=== PATIENT | male | born 2005 | race Caucasian/White ===

== ENCOUNTER 2024-04-14 17:50 | Emergency (ER) | payer OTHER, SELFPAY ==
--- NOTE | ~2024-04-14 | XR_ITS ---
CLINICAL HISTORY: CP 2 view chest x-ray Comparison: None Findings: The lungs are clear. Heart size is normal. No acute fracture. IMPRESSION: 1. No acute findings. This document has been electronically signed by: Maurice Pavon MD on 04/14/2024 19:34:56
[2024-04-14 17:59] VITALS: BP 103/50; BP 140/58; PULSE 75; PULSE 86; RESP 16; TEMP 36.8; O2SAT 100; O2SAT 98; BMI 21.3
--- NOTE | 2024-04-14 17:59 | ECG_ITS ---
Test Reason : CP Blood Pressure : */* mmHG Vent. Rate : 74 BPM Atrial Rate : 74 BPM P-R Int : 156 ms QRS Dur : 96 ms QT Int : 362 ms P-R-T Axes : -11 137 64 degrees QTcB Int : 401 ms Normal sinus rhythm Right axis deviation Abnormal ECG No previous ECGs available Referred By: Generic ED Physician Electronically Signed By: BYRAN GUSMAN MD
--- NOTE | 2024-04-14 18:09 | ED.CHESTPAIN ---
HPI - Chest Pain General Chief Complaint: Chest Pain Stated Complaint: Chest pain Time Seen by Provider: 04/14/24 18:56 History of Present Illness ED Provider: Freddy Harman MD HPI narrative: 18-year-old male denies any medical history is daily cannabis smoker denies any cardiopulmonary history. He is coming in with about 2-3 days of discomfort in the chest left parasternal region some mild shortness of breath and 1 2 to near syncopal episodes over the past 2-3 days sometimes while walking. He reports about 3-4 days ago before all of this he developed a mild sore throat dry cough low-grade subjective fever felt he was catching a cold or upper respiratory infection. He has no history DVT or PE nor any personal or family cardiac history or early cardiac . Denies leg swelling chest trauma although he does work a physical job in a warehouse he does not recall any explicit injury. No hemoptysis. Related Data Previous Rx's ?Medication ?Instructions ?Recorded aspirin 650 mg tablet,delayed 650 mg PO Q8-10H 2 weeks #42 tabs 04/14/24 release colchicine 0.6 mg capsule 0.6 mg PO BID 180 days #360 caps 04/14/24 pantoprazole 20 mg tablet,delayed 20 mg PO DAILY #30 tabs 04/14/24 release Allergies Allergy/AdvReac Type Severity Reaction Status Date / Time No Known Allergies Allergy Verified 04/14/24 18:08 [facility] Social History Social History Smoked in Last 30 Days: No Use of substances other than those prescribed or required for medical reasons: Yes Substance Use Type: Marijuana Substance Use Frequency: Daily Advance Directives: No Advance Directives Information Provided: No Do you have a plan to hurt others: No Plan Physical Exam Vital Signs: Vital Signs: Last Vital Signs Temp 99.2 F 04/14/24 20:31 Pulse 73 04/14/24 20:31 Resp 16 04/14/24 20:31 BP 115/57 L 04/14/24 20:31 Pulse Ox 98 04/14/24 20:31 O2 Del Method Room Air 04/14/24 20:31 BMI result Body Mass Index 21.3 Const: Other: EXAM: Gen: Alert, awake, well appearing, well hydrated. Head: Atraumatic Eyes: Anicteric, Normal conjunctiva. ENT: Moist mucosa, no pallor. ? Neck: Supple. No JVD no masses Respiratory: Breathing comfortably, No distress.Clear to auscultation bilaterally, symmetric chest expansion, No wheeze, rales, ronchi. Cardiovascular: Regular rate and rhythm. No murmurs or rub. Well perfused periphery, warm extremities. No edema. ? Chest wall: Mild tenderness left parasternal border. No bruising no ecchymosis no step-off no crepitus Abdominal: Soft, no objective distension. No palpable masses or obvious organomegaly. No focal tenderness, no guarding, no rebound tenderness or other peritoneal findings. : No flank tenderness. Neuro: Alert. Gross movement of all extremities intact. ? Vital signs: See flowsheet Course Course Course Narrative: This is an RME: Additional HPI, ROS, PE not included below will be deferred to primary provider. RME assessment and note performed by: Katharina Westfall PA-C This is a [id number]-male who presents to the ER with complaints of intermittent chest pain x 3 days on and off. Patient states that he feels as though his heart is racing, developed diaphoresis. Denies any known stressors. Plan: EKG, chest x-ray, labs, further ER evaluation needed. Medications Administered Discontinued Medications Generic Name Dose Route Start Last Admin Trade Name Freq PRN Reason Stop Dose Admin Aspirin 650 mg 04/14/24 20:20 04/14/24 20:39 Aspirin 325 Mg Tablet PO 04/14/24 20:21 650 mg ONCE ONE Administration Colchicine 1.2 mg 04/14/24 20:20 04/14/24 20:38 Colchicine 0.6 Mg Tablet PO 04/14/24 20:21 1.2 mg ONCE ONE Administration Omeprazole 20 mg 04/14/24 20:20 04/14/24 20:39 Omeprazole 20 Mg Capsule. PO 04/14/24 20:21 20 mg ONCE ONE Administration Procedures Procedure Narrative Procedure Narrative: EMERGENCY ULTRASOUND INTERPRETATION-Limited Echocardiography [This study was ordered, performed, and interpreted by myself. The study reveals: Impression: NORMAL LV FUNCTION, NO RV DYSFUNCTION, NO PERICARDIAL EFFUSION] [Emergent Cardiac for Indication: Views Used: PLAX, PSSA, A4, SX, IVC Pericardial Effusion/Tamponade Findings: NONE RV Dilation (> LV diam in 4ch apical): NONE Global LV Fxn: NORMAL IVC Dilation and Resp Variation: NORMAL Performed by: MD Ghazal Images were stored on EMR through [employer] image archive software. CPT:73627] Medical Decision Making Medical Decision Making [facility] Narrative: 18-year-old male with mild pleuritic left parasternal pain for 3 days in the setting of mild URI. No chest wall trauma. X-ray interpreted by myself initially with no pneumothorax no rib fracture no pulmonary contusion. The ECG does have mild diffuse ST elevation this could be benign early repolarization and/or solar sales representative of pericarditis Labs reviewed with no troponin elevation or electrolyte derangement or other actionable chemistry or CBC finding. Lab Data [facility] Lab Attestation statement: I reviewed the patient's lab results. 04/14/24 19:13 04/14/24 19:14 Labs: Lab Results 04/14/24 04/14/24 Range/Units 19:13 19:14 WBC 10.3 (4.8-10.8) X10*3/uL RBC 5.49 (4.60-5.80) X10*6/uL Hgb 16.5 (14.0-18.0) g/dl Hct 46.5 (42.0-52.0) % MCV 84.7 (80.0-98.0) fL MCH 30.1 (27.0-33.0) pg MCHC 35.5 (31.0-36.0) g/dl RDW 12.9 (11.0-16.0) % Plt Count 202 (160-400) X10*3/uL MPV 11.9 (9.4-12.4) fL Immature Gran % (Auto) 0.2 (0.0-0.4) % Neut % (Auto) 66.7 (45-73) % Lymph % (Auto) 25.3 (20-40) % [place] % (Auto) 7.0 (2-11) % Eos % (Auto) 0.1 (0-4) % Baso % (Auto) 0.7 (0-2) % Lymph # (Auto) 2.6 (1.2-4.9) X10*3/uL [place] # (Auto) 0.7 (0.1-1.2) X10*3/uL Eos # (Auto) 0.0 (0.0-0.4) X10*3/uL Baso # (Auto) 0.1 (0.0-0.2) X10*3/uL Abs Immat Gran (auto) 0.02 (0.00-0.03) X10*3/uL Absolute Neuts (auto) 6.9 (2.0-8.3) x10*3/uL Absolute Nucleated RBC 0.000 (0.0-0.012) X10*3/uL Nucleated RBC % (auto) 0.0 (0.0-0.2) /100WBC Sodium 141 (135-145) mmol/L Potassium 3.9 (3.3-5.1) mmol/L Chloride 107 (96-108) mmol/L Carbon Dioxide 26 (22-29) mmol/L Anion Gap 12 (12-20) BUN 15 (9-16) mg/dL Creatinine 1.05 (0.5-1.4) mg/dL Estim Creat Clear Calc 100.7 Estimated GFR > 60 Random Glucose 90 (60-115) mg/dL Calcium 9.6 (8.4-10.2) mg/dL Magnesium 2.2 (1.6-2.6) mg/dL Total Bilirubin 0.8 (0.0-1.0) mg/dL Direct Bilirubin 0.3 (0.0-0.5) mg/dL AST 28 (5-37) U/L ALT 22 (0-40) U/L Alkaline Phosphatase 67 (39-117) U/L Troponin I High Sens < 2.7 (<3.5-35.0) ng/L Total Protein 8.3 H (6.5-8.0) g/dL Albumin 4.9 (3.5-5.0) g/dL Lipase 12 (8-78) U/L TSH 1.34 (0.32-4.0) uIU/mL Influenza Type A (PCR) NEGATIVE (Negative) Influenza Type B (PCR) NEGATIVE (Negative) RSV RNA Qual (PCR) NEGATIVE (Negative) SARS-CoV-2 RNA (RT-PCR) NEGATIVE (Negative) Independent Interpretation I performed an independent interpretation of an: EKG Interpretation: Sinus rhythm rate 74 QTC 401. Diffuse concave upward ST elevation particularly V2 through V5. There is also mild ST elevations in lead 2 [address] AVF. No reciprocal ST depressions. Discharge Plan Discharge Clinical Impression: Chest pain, Pericarditis Patient Disposition: Home, Self-Care Additional Instructions: DISCHARGE DIAGNOSES: We believe you have pericarditis and inflammation of the tissue around your heart. This can cause chest pain shortness of breath and some of your other symptoms. HISTORY OF PRESENTATION: ?Mild dry cough, chest pain EMERGENCY DEPARTMENT COURSE,TESTS, TREATMENTS: While in the ED today in the emergency department he had a chest x-ray this did not show any collapsed lung, pneumonia or other acute abnormalities You had lab work including blood counts chemistry tests and a cardiac enzyme ?heart attack? test. These were all normal and reassuring. Your EKGs showed signs of inflammatory condition around the heart called pericarditis most likely. DISCHARGE MEDICATIONS: ?We have prescribed several medications take them as we prescribed him to not miss any doses . Take these medications with meals even if it is piece of bread or small amount of food if you do not you are at risk of hurting your stomach FOLLOW-UP: ?Call your primary or general physician soon as possible to discuss your symptoms, your ED visit and to discuss follow up plans Call your primary doctor for follow up you should be seen within 1 week for re-evaluation INSTRUCTIONS ?& RETURN PRECAUTIONS: If any symptoms change first call your primary physician, if it is after-hours your primary doctors office should have a provider responder you can speak with. If the symptoms are severe or very concerning to you then call 911 or return to the ED. If you develop severe pain severe difficulty breathing if you lose consciousness more than once if you develop severe rapid heart beating or palpitation sensation call 9 want to come to the ED Freddy Harman MD Emergency Physician [facility] Prescriptions: New colchicine 0.6 mg capsule 0.6 mg PO BID 180 Days Qty: 360 0RF aspirin 650 mg tablet,delayed release (DR/EC) 650 mg PO Q8-10H 14 Days Qty: 42 0RF pantoprazole 20 mg tablet,delayed release (DR/EC) 20 mg PO DAILY Qty: 30 0RF Discharge Date/Time: 04/14/24 20:53 Print Language: Khmer
[2024-04-14 19:21] LABS: MANUAL DIFF FLAG NO
[2024-04-14 19:31] LABS: Basophils Absolute Auto 0.1 X10*3/uL (0.0-0.2); Basophils Percent Auto 0.7 % (0-2); Eosinophils Percent Auto 0.1 % (0-4); Hematocrit 46.5 % (42.0-52.0); Hemoglobin 16.5 g/dl (14.0-18.0); Imm Gran Abs Auto 0.02 X10*3/uL (0.00-0.03); Imm Gran Pct Auto 0.2 % (0.0-0.4); Lymphocytes Absolute Auto 2.6 X10*3/uL (1.2-4.9); Lymphocytes Percent Auto 25.3 % (20-40); Mean Corpuscular HGB Conc 35.5 g/dl (31.0-36.0); Mean Corpuscular Hemoglobin 30.1 pg (27.0-33.0); Mean Corpuscular Volume 84.7 fL (80.0-98.0); Mean Platelet Volume 11.9 fL (9.4-12.4); Monocytes Absolute Auto 0.7 X10*3/uL (0.1-1.2); Neutrophils Absolute Auto 6.9 x10*3/uL (2.0-8.3); Neutrophils Percent Auto 66.7 % (45-73); Platelet Count 202 X10*3/uL (160-400); Red Blood Count 5.49 X10*6/uL (4.60-5.80); Red Cell Distribution Width 12.9 % (11.0-16.0); White Blood Count 10.3 X10*3/uL (4.8-10.8)
[2024-04-14 19:45] LABS: Alanine Aminotransferase 22 U/L (0-40); Albumin Level 4.9 g/dL (3.5-5.0); Alkaline Phosphatase 67 U/L (39-117); Anion Gap 12 (12-20); Aspartate Amino Transferase 28 U/L (5-37); Bilirubin Direct 0.3 mg/dL (0.0-0.5); Bilirubin Total 0.8 mg/dL (0.0-1.0); Blood Urea Nitrogen 15 mg/dL (9-16); Calcium 9.6 mg/dL (8.4-10.2); Carbon Dioxide 26 mmol/L (22-29); Chloride 107 mmol/L (96-108); Creatinine Clr Calc Pharmacy 100.7; Estimated Glomerular Filt Rate > 60; Glucose Random 90 mg/dL (60-115); Lipase 12 U/L (8-78); Magnesium 2.2 mg/dL (1.6-2.6); Potassium 3.9 mmol/L (3.3-5.1); Sodium 141 mmol/L (135-145); Total Protein 8.3 g/dL (6.5-8.0)
[2024-04-14 19:55] LABS: Troponin-I High Sensitivity < 2.7 ng/L (<3.5-35.0)
[2024-04-14 20:05] LABS: Influenza A PCR NEGATIVE (Negative); Influenza B PCR NEGATIVE (Negative); Resp Syncy Virus RNA Qual PCR NEGATIVE (Negative); SARS COV2 PCR INHOUSE NEGATIVE (Negative)
[2024-04-14 20:08] LABS: TSH reflex Free T4 1.34 uIU/mL (0.32-4.0)
[2024-04-14 20:31] VITALS: BP 115/57; PULSE 73; RESP 16; TEMP 37.3; O2SAT 98
[2024-04-14] MEDS: Colchicine 0.6 MG TABLET 1.2 MG PO (20:38)
[2024-04-14] MEDS: Omeprazole 20 MG CAPSULE.DR PO (20:39)
[2024-04-14] MEDS: Aspirin 325 MG TABLET 650 MG PO (20:39)
== END 2024-04-14 20:53 | disposition home or self-care (01) ==
PROVIDERS: Physician Assistant Medical; Emergency Provider Emergency Medicine
DX: R07.89 Other chest pain (principal); I31.9 Disease of pericardium, unspecified; R07.81 Pleurodynia; R06.02 Shortness of breath; J02.9 Acute pharyngitis, unspecified; F12.10 Cannabis abuse, uncomplicated; R05.9 Cough, unspecified; R50.9 Fever, unspecified; R94.31 Abnormal electrocardiogram [ECG] [EKG]; Z03.818 Encounter for observation for suspected exposure to other biological agents ruled out; Z79.899 Other long term (current) drug therapy
CPT/HCPCS: 0241U; 36415; 71046; 80048; 80076; 83690; 83735; 84443; 84484; 85025; 93005; 99283; 99285

== ENCOUNTER → 2024-04-14 17:59 | Outpatient (BNV) | payer OTHER, SELFPAY | PROVIDERS: Emergency Provider Emergency Medicine; Visit Provider Internal Medicine Cardiovascular Disease | DX: R07.9 Chest pain, unspecified (principal); R94.31 Abnormal electrocardiogram [ECG] [EKG] | CPT/HCPCS: 93010 ==

== ENCOUNTER → 2024-04-14 18:12 | Outpatient (BNV) | payer SELFPAY | PROVIDERS: Emergency Provider Emergency Medicine; Visit Provider Radiology Diagnostic Radiology | DX: R07.9 Chest pain, unspecified (principal) | CPT/HCPCS: 71046 ==

== ENCOUNTER 2024-04-22 22:28 | Emergency (ER) | payer OTHER, SELFPAY ==
--- NOTE | 2024-04-22 | ECG_ITS ---
Test Reason : sob Blood Pressure : */* mmHG Vent. Rate : 87 BPM Atrial Rate : 87 BPM P-R Int : 188 ms QRS Dur : 102 ms QT Int : 362 ms P-R-T Axes : 67 173 49 degrees QTcB Int : 435 ms Normal sinus rhythm Right axis deviation Right ventricular hypertrophy Abnormal ECG When compared with ECG of 14-Apr-2024 18:01, No significant change was found Referred By: Generic ED Physician Electronically Signed By: BRYAN GUSMAN MD
--- NOTE | ~2024-04-22 | XR_ITS ---
CLINICAL HISTORY: sob 1 view chest x-ray Comparison: CR - XR CHEST 2V - 04/14/24 19:10 EST Findings: The lungs are clear. Heart size is normal. No acute fracture. IMPRESSION: 1. No acute findings. This document has been electronically signed by: Carlton Calhoun MD on 04/22/2024 23:38:28
[2024-04-22 22:36] VITALS: BP 118/61; PULSE 92; RESP 16; TEMP 36.8; O2SAT 97; BMI 21.3
[2024-04-22 22:54] LABS: MANUAL DIFF FLAG NO
[2024-04-22 22:55] LABS: Basophils Absolute Auto 0.1 X10*3/uL (0.0-0.2); Basophils Percent Auto 0.8 % (0-2); Eosinophils Percent Auto 0.1 % (0-4); Hematocrit 41.3 % (42.0-52.0); Imm Gran Abs Auto 0.02 X10*3/uL (0.00-0.03); Imm Gran Pct Auto 0.3 % (0.0-0.4); Lymphocytes Absolute Auto 2.6 X10*3/uL (1.2-4.9); Lymphocytes Percent Auto 35.4 % (20-40); Mean Corpuscular HGB Conc 36.3 g/dl (31.0-36.0); Mean Corpuscular Hemoglobin 29.9 pg (27.0-33.0); Mean Corpuscular Volume 82.4 fL (80.0-98.0); Mean Platelet Volume 11.7 fL (9.4-12.4); Monocytes Absolute Auto 0.5 X10*3/uL (0.1-1.2); Monocytes Percent Auto 7.2 % (2-11); Neutrophils Absolute Auto 4.2 x10*3/uL (2.0-8.3); Neutrophils Percent Auto 56.2 % (45-73); Platelet Count 158 X10*3/uL (160-400); Red Blood Count 5.01 X10*6/uL (4.60-5.80); Red Cell Distribution Width 13.1 % (11.0-16.0); White Blood Count 7.5 X10*3/uL (4.8-10.8)
[2024-04-22 23:10] LABS: Alanine Aminotransferase 17 U/L (0-40); Albumin Level 4.6 g/dL (3.5-5.0); Alkaline Phosphatase 83 U/L (39-117); Anion Gap 16 (12-20); Aspartate Amino Transferase 26 U/L (5-37); Bilirubin Total 0.3 mg/dL (0.0-1.0); Blood Urea Nitrogen 16 mg/dL (9-16); Calcium 9.4 mg/dL (8.4-10.2); Carbon Dioxide 24 mmol/L (22-29); Chloride 108 mmol/L (96-108); Creatinine Clr Calc Pharmacy 111.4; Estimated Glomerular Filt Rate > 60; Glucose Random 105 mg/dL (60-115); Potassium 3.6 mmol/L (3.3-5.1); Sodium 144 mmol/L (135-145); Total Protein 7.6 g/dL (6.5-8.0)
[2024-04-22 23:19] LABS: Troponin-I High Sensitivity < 2.7 ng/L (<3.5-35.0)
[2024-04-23 02:16] VITALS: BP 127/58; PULSE 68; RESP 18; TEMP 36.6; O2SAT 99
--- NOTE | 2024-04-23 02:19 | PC.NURSE ---
Pt ambulatory to ED 21 with steady gait, assumed care of pt at this time. A&Ox3 skin pwd respirations even unlabored. VSS, equipment monitor phototypesetting applied NSR on monitor. Pt reports dx with pericarditis last , continues with intermittent sharp mid sternal chest pain worse with movement. Reports syncopal event at work today, witnessed by coworkers, no fall. Labs drawn in results received, awaiting primary provider eval, aware of plan of care.
--- NOTE | 2024-04-23 04:51 | PC.NURSE ---
Pt continues to await primary provider eval, no change in physical assessment.
[2024-04-23 05:28] VITALS: BP 98/54; PULSE 71; RESP 12; TEMP 36.4; O2SAT 98
--- NOTE | 2024-04-23 06:12 | ED.CHESTPAIN ---
HPI - Chest Pain General Chief Complaint: General Medical Stated Complaint: pericarditis? SOB Time Seen by Provider: 04/23/24 06:04 Source: patient and old records reviewed Mode of arrival: ambulatory Limitations: no limitations History of Present Illness ED Provider: YTREE MAYFIELD narrative: 18 yo male with no sig PMH had a viral illness last week and then pleuritic chest pain was dx with pericarditis and started on colchicine. He is getting better but he still has pleuritic chest pain then he went to work and afterwards he was so tired he felt like he would pass out. He notes the pain comes and goes. He isn't back to 100% and is frustated. He has no fevers, no black or bloody stools. MD complaint: chest pain Pertinent past history: other Onset (ago): day(s) (since thursday) Timing of current episode: episodic Prior episodes: Yes Onset: during rest and during exertion Pain location: substernal Pain radiation: none Severity: mild Quality: sharp Relieving factors: nothing Exacerbating factors: inspiration and movement Context: recent illness Associated symptoms: dyspnea Treatment prior to arrival: other (colchicine) Related Data Previous Rx's ?Medication ?Instructions ?Recorded aspirin 650 mg tablet,delayed 650 mg PO Q8-10H 2 weeks #42 tabs 04/14/24 release colchicine 0.6 mg capsule 0.6 mg PO BID 180 days #360 caps 04/14/24 pantoprazole 20 mg tablet,delayed 20 mg PO DAILY #30 tabs 04/14/24 release cyclobenzaprine 10 mg tablet 10 mg PO TID PRN muscle spasm #20 04/23/24 tabs Allergies Allergy/AdvReac Type Severity Reaction Status Date / Time No Known Allergies Allergy Verified 04/22/24 22:39 Review of Systems Review of Systems: Constitutional : No Weight loss, No Fever, No Chills ENT/Mouth : No sore throat, No Rhinorrhea Eyes: No Eye Pain, No Swelling Cardiovascular : pos Chest Pain, pos SOB, no Dyspnea on Exertion, No Orthopnea, No Edema, No Palpitations Respiratory : No Cough, No Sputum Gastrointestinal : no Nausea, No Vomiting, No Diarrhea, No abdominal Pain, No Hematochezia, No Melena Genitourinary : No Dysuria, No Urinary Frequency Musculoskeletal : No joint pain, No Myalgias, No Joint Swelling Skin : No Skin Lesions, No rash Neuro : No Weakness, No Numbness, No Dizziness, No Headache All other systems reviewed and are negative [facility] Past Medical History Attestation statement: The following information was validated with the patient. Source: old records reviewed Medical History (Updated 04/23/24 @ 07:29 by Linda Adams DO) Pericarditis Social History Social History (Updated 04/23/24 @ 07:29 by Linda Adams DO) Patient Tobacco Use Status: Never used Tobacco Substance Use Type: Marijuana Physical Exam Vital Signs: Vital Signs: Last Vital Signs Temp 97.4 F 04/23/24 06:40 Pulse 68 04/23/24 06:40 Resp 12 04/23/24 06:40 BP 109/63 04/23/24 06:40 Pulse Ox 99 04/23/24 06:40 O2 Del Method Room Air 04/23/24 06:40 BMI result Body Mass Index 21.3 Appearance: Alert. Oriented X3. No acute distress. Eyes: Pupils equal, round and reactive to light. ENT: Pharynx normal. Neck: Normal inspection. Neck supple. CVS: Normal heart rate and rhythm. Pulses normal. Respiratory: No respiratory distress. Breath sounds normal. Abdomen: Soft and nontender. Skin: Skin warm and dry. Normal skin color. Normal skin turgor. Extremities: No lower extremity edema. No calf ttp Neuro: Oriented X 3. No motor deficit. No sensory deficit. CN2-12 intact Procedures Procedure Narrative Procedure Narrative: bedside limited ECHO no effusion noted apical, parasternal, subxiphoid views Medical Decision Making Medical Decision Making [facility] Narrative: 18 yo male dx with pericarditis on thursday after viral illness he is on colchicine but he reports he is still tired and has intermittent chest pains. At this time he is well appearing and not toxic, will obtain bedside US for effusion, troponin for myopericarditis, ddimer for VTE though low probability. He is getting better he reports but would like recovery to be faster. If work up negative will add on additional muscle relaxer. Differential Diagnosis Differential Diagnoses: The differential diagnosis associated with the presentation includes perciarditis, effusion, low prob VTE Admission/Observation Consideration of admission/observation: Escalation of care including admission/observation considered work up negative no effusion stable for DC Lab Data [facility] Lab Attestation statement: I reviewed the patient's lab results. 04/22/24 22:49 04/22/24 22:49 Labs: Lab Results 04/22/24 04/23/24 Range/Units 22:49 06:44 WBC 7.5 (4.8-10.8) X10*3/uL RBC 5.01 (4.60-5.80) X10*6/uL Hgb 15.0 (14.0-18.0) g/dl Hct 41.3 L (42.0-52.0) % MCV 82.4 (80.0-98.0) fL MCH 29.9 (27.0-33.0) pg MCHC 36.3 H (31.0-36.0) g/dl RDW 13.1 (11.0-16.0) % Plt Count 158 L (160-400) X10*3/uL MPV 11.7 (9.4-12.4) fL Immature Gran % (Auto) 0.3 (0.0-0.4) % Neut % (Auto) 56.2 (45-73) % Lymph % (Auto) 35.4 (20-40) % [place] % (Auto) 7.2 (2-11) % Eos % (Auto) 0.1 (0-4) % Baso % (Auto) 0.8 (0-2) % Lymph # (Auto) 2.6 (1.2-4.9) X10*3/uL [place] # (Auto) 0.5 (0.1-1.2) X10*3/uL Eos # (Auto) 0.0 (0.0-0.4) X10*3/uL Baso # (Auto) 0.1 (0.0-0.2) X10*3/uL Abs Immat Gran (auto) 0.02 (0.00-0.03) X10*3/uL Absolute Neuts (auto) 4.2 (2.0-8.3) x10*3/uL Absolute Nucleated RBC 0.000 (0.0-0.012) X10*3/uL Nucleated RBC % (auto) 0.0 (0.0-0.2) /100WBC D-Dimer High Sensitivty < 150 NG/ML Sodium 144 (135-145) mmol/L Potassium 3.6 (3.3-5.1) mmol/L Chloride 108 (96-108) mmol/L Carbon Dioxide 24 (22-29) mmol/L Anion Gap 16 (12-20) BUN 16 (9-16) mg/dL Creatinine 0.95 (0.5-1.4) mg/dL Estim Creat Clear Calc 111.4 Estimated GFR > 60 Random Glucose 105 (60-115) mg/dL Calcium 9.4 (8.4-10.2) mg/dL Total Bilirubin 0.3 (0.0-1.0) mg/dL AST 26 (5-37) U/L ALT 17 (0-40) U/L Alkaline Phosphatase 83 (39-117) U/L Troponin I High Sens < 2.7 (<3.5-35.0) ng/L Total Protein 7.6 (6.5-8.0) g/dL Albumin 4.6 (3.5-5.0) g/dL Independent Interpretation I performed an independent interpretation of an: EKG and Plain X-Ray (normal ) Interpretation: Rate: 87 Rhythm: NSR [place]: left Normal P waves. Normal KATHRINE. Normal QRS complex. ST T wave : normal no KAROL qTC: 435 prior studies: no acute ischemia The study has been interpreted contemporaneously by me. . Radiology Impression Discussion of test interpretation with radiology: I have reviewed the radiologist's reading. External Record Review External record reviewed: Outpatient record Prescription Management I considered prescription management with: Other Discharge Plan Discharge Clinical Impression: Pericarditis Qualifiers: Pericarditis type: unspecified type Chronicity: acute Qualified Code(s): I30.9 - Acute pericarditis, unspecified Patient Disposition: Home, Self-Care Instructions: Acute Pericarditis (ED) Additional Instructions: continue the colchicine your labs, chest xray, heart marker tests, negative for blood clot negative ultrasound for fluid around the heart please return for any worsening symptoms or concerns will start on a muscle relaxer rest and stay hydrated Prescriptions: New cyclobenzaprine 10 mg tablet 10 mg PO TID PRN (Reason: muscle spasm) Qty: 20 0RF No Action colchicine 0.6 mg capsule 0.6 mg PO BID 180 Days Qty: 360 0RF aspirin 650 mg tablet,delayed release (DR/EC) 650 mg PO Q8-10H 14 Days Qty: 42 0RF pantoprazole 20 mg tablet,delayed release (DR/EC) 20 mg PO DAILY Qty: 30 0RF Stand Alone Forms: Work/School Release Print Language: Kazakh
--- NOTE | 2024-04-23 06:27 | PC.NURSE ---
Provider to bedside for primary eval.
[2024-04-23 06:40] VITALS: BP 109/63; PULSE 68; RESP 12; TEMP 36.3; O2SAT 99
[2024-04-23 07:01] LABS: D Dimer High Sensitivity < 150 NG/ML
[2024-04-23 07:28] VITALS: BP 109/63; PULSE 68; RESP 12; TEMP 36.3; O2SAT 99
== END 2024-04-23 07:40 | disposition home or self-care (01) ==
PROVIDERS: Emergency Provider Emergency Medicine
DX: I30.9 Acute pericarditis, unspecified (principal); R55 Syncope and collapse; R10.13 Epigastric pain; R06.00 Dyspnea, unspecified; F12.90 Cannabis use, unspecified, uncomplicated; Z79.82 Long term (current) use of aspirin; Z79.899 Other long term (current) drug therapy
CPT/HCPCS: 36415; 71045; 80053; 84484; 85025; 85379; 93005; 99283; 99284

== ENCOUNTER → 2024-04-22 22:45 | Outpatient (BNV) | payer OTHER, SELFPAY | PROVIDERS: Emergency Provider Emergency Medicine; Visit Provider Internal Medicine Cardiovascular Disease | DX: I51.7 Cardiomegaly (principal) | CPT/HCPCS: 93010 ==

== ENCOUNTER → 2024-04-22 23:00 | Outpatient (BNV) | payer OTHER, SELFPAY | PROVIDERS: Visit Provider Radiology Diagnostic Radiology | DX: R06.02 Shortness of breath (principal) | CPT/HCPCS: 71045 ==